=== PATIENT | female | born 1955 | race Asian ===

== ENCOUNTER 2017-11-02 16:05 | Inpatient (IN) | payer OTHER ==
[2017-11-02 18:54] LABS: ADD MAN DIFF? NO
[2017-11-02] MEDS: LABETALOL HCL 20MG INJ IV (18:56)
[2017-11-02] MEDS: ASPIRIN 325 MG TAB PO (18:56)
[2017-11-02 18:57] LABS: WHITE BLOOD COUNT 8.8 10^3/ul (4.8-10.8)
[2017-11-02 18:57] LABS: BASOPHIL # 0.1 10^3/ul (0.0-0.1); BASOPHILS % 0.6 % (0.0-2.0); EOSINOPHILS # 0.1 10^3/ul (0.0-0.5); EOSINOPHILS % 1.3 % (0.0-7.0); HEMATOCRIT 43.2 % (37.0-47.0); HEMOGLOBIN 14.5 g/dl (12.0-16.0); LYMPHOCYTES # 2.9 10^3/ul (0.8-2.9); LYMPHOCYTES % 32.6 % (15.0-51.0); MEAN CORPUSCULAR HGB CONC 33.6 g/dl (32.0-37.0); MEAN CORPUSCULAR VOLUME 92.5 fl (82.0-101.0); MEAN PLATELET VOLUME 11.9 fl (7.4-10.4); MONOCYTE # 0.6 10^3/ul (0.3-0.9); MONOCYTES % 7.1 % (0.0-11.0); NEUTROPHIL # 5.1 10^3/ul (1.6-7.5); NEUTROPHILS % 58.3 % (39.0-77.0); PLATELET COUNT 153 10^3/UL (140-415); RED BLOOD COUNT 4.67 10^6/ul (4.20-5.40); RED CELL DISTRIBUTION WIDTH 12.8 % (11.5-14.5)
[2017-11-02 19:16] LABS: ANION GAP 14 (8-16); BLOOD UREA NITROGEN 21 mg/dl (7-20); CARBON DIOXIDE 26 mmol/L (21-31); CHLORIDE 105 mmol/L (97-110); CREATININE 0.71 mg/dl (0.44-1.00); GLUCOSE 146 mg/dl (70-220); POTASSIUM 3.5 mmol/L (3.5-5.1); SODIUM 141 mmol/L (135-144)
[2017-11-02 19:28] LABS: B-TYPE NATRIURETIC PEPTIDE 3800 PG/ML (0-125); TROPONIN-I < 0.012 ng/ml (0.000-0.120)
[2017-11-02] MEDS: FUROSEMIDE 40 MG INJ IV (20:57)
[2017-11-02] MEDS ORDERED: DOCUSATE SODIUM 100 MG CAP PO (21:00)
[2017-11-02] MEDS ORDERED: BISACODYL (EC) 5 MG TAB PO (21:00)
[2017-11-02] MEDS ORDERED: NACL 0.9% 3 ML SYG IV (21:00)
[2017-11-02] MEDS ORDERED: ONDANSETRON 4 MG TAB PO (21:00)
[2017-11-02] MEDS ORDERED: morphine 2 MG INJ IV (21:00)
[2017-11-02] MEDS ORDERED: NITROGLYCERIN (SL) 0.4 MG TAB SL (21:00)
[2017-11-02] MEDS: ATORVASTATIN 10 MG TAB PO (23:11)
[2017-11-03 01:12] LABS: CREATINE KINASE 450 IU/L (23-200)
[2017-11-03 01:55] LABS: CK-MB 4.34 ng/ml (0.0-2.4)
[2017-11-03 03:47] LABS: TROPONIN-I < 0.012 ng/ml (0.000-0.120)
[2017-11-03] MEDS ORDERED: LOSARTAN 25 MG TAB (04:18)
[2017-11-03] MEDS: LOSARTAN 25 MG TAB PO ×2 (04:20→08:31)
[2017-11-03 06:16] LABS: ADD MAN DIFF? NO
[2017-11-03 06:20] LABS: WHITE BLOOD COUNT 8.9 10^3/ul (4.8-10.8)
[2017-11-03 06:20] LABS: BASOPHIL # 0.1 10^3/ul (0.0-0.1); BASOPHILS % 0.7 % (0.0-2.0); EOSINOPHILS # 0.2 10^3/ul (0.0-0.5); EOSINOPHILS % 1.7 % (0.0-7.0); HEMATOCRIT 43.4 % (37.0-47.0); HEMOGLOBIN 14.5 g/dl (12.0-16.0); LYMPHOCYTES # 2.5 10^3/ul (0.8-2.9); LYMPHOCYTES % 28.4 % (15.0-51.0); MEAN CORPUSCULAR HEMOGLOBIN 30.9 pg (29.0-33.0); MEAN CORPUSCULAR HGB CONC 33.4 g/dl (32.0-37.0); MEAN CORPUSCULAR VOLUME 92.3 fl (82.0-101.0); MEAN PLATELET VOLUME 12.4 fl (7.4-10.4); MONOCYTE # 0.9 10^3/ul (0.3-0.9); MONOCYTES % 9.6 % (0.0-11.0); NEUTROPHIL # 5.3 10^3/ul (1.6-7.5); NEUTROPHILS % 59.4 % (39.0-77.0); PLATELET COUNT 147 10^3/UL (140-415); RED CELL DISTRIBUTION WIDTH 12.9 % (11.5-14.5)
[2017-11-03 06:43] LABS: ALANINE AMINOTRANSFERASE 93 IU/L (13-69); ALBUMIN 3.9 g/dl (3.3-4.9); ALBUMIN/GLOBULIN RATIO 1.14; ALKALINE PHOSPHATASE 138 IU/L (42-121); ANION GAP 15 (8-16); ASPARTATE AMINO TRANSFERASE 82 IU/L (15-46); BILIRUBIN,INDIRECT 1.1 mg/dl (0-1.1); BILIRUBIN,TOTAL 1.1 mg/dl (0.2-1.3); BLOOD UREA NITROGEN 19 mg/dl (7-20); CALCIUM 8.6 mg/dl (8.4-10.2); CARBON DIOXIDE 31 mmol/L (21-31); CHLORIDE 99 mmol/L (97-110); CHOL/HDL RATIO 2.6 RATIO; CHOLESTEROL 156 mg/dl (100-200); CREATININE 0.71 mg/dl (0.44-1.00); GLUCOSE 81 mg/dl (70-220); HDL CHOLESTEROL 60 mg/dl (35-98); LDL CHOLESTEROL,CALCULATED 70 mg/dl; MAGNESIUM 1.5 mg/dl (1.7-2.5); SODIUM 142 mmol/L (135-144); TOTAL PROTEIN 7.3 g/dl (6.1-8.1); TRIGLYCERIDES 131 mg/dl (0-149)
[2017-11-03 06:47] LABS: CREATINE KINASE 347 IU/L (23-200)
[2017-11-03 06:54] LABS: CK INDEX 1.2; CK-MB 4.23 ng/ml (0.0-2.4); TROPONIN-I < 0.012 ng/ml (0.000-0.120)
[2017-11-03 07:01] LABS: HEMOGLOBIN A1C 5.8 % (0-5.9)
[2017-11-03] MEDS: ASCORBIC ACID 500 MG TAB PO (08:30)
[2017-11-03] MEDS: VITAMIN B COMPLEX/VIT C CAP PO (08:30)
[2017-11-03] MEDS: ASPIRIN (EC) 81 MG TAB PO (08:30)
[2017-11-03] MEDS: MULTIVITAMINS/MINERALS TAB PO (08:30)
[2017-11-03] MEDS: POTASSIUM CHLORIDE (SR) 20 MEQ TAB PO (08:59)
[2017-11-03] MEDS: POTASSIUM CHLORIDE 100 ML IVPB ×3 (10:25→17:58)
[2017-11-03] MEDS: ACETAMINOPHEN 325 MG TAB PO (11:39)
[2017-11-03] MEDS: ATORVASTATIN 10 MG TAB PO (20:22)
[2017-11-03] MEDS: FUROSEMIDE 20 MG INJ IV (22:46)
[2017-11-04] MEDS: ASPIRIN (EC) 81 MG TAB PO (08:26)
[2017-11-04] MEDS: VITAMIN B COMPLEX/VIT C CAP PO (08:26)
[2017-11-04] MEDS: ASCORBIC ACID 500 MG TAB PO (08:29)
[2017-11-04] MEDS: MULTIVITAMINS/MINERALS TAB PO (08:31)
[2017-11-04] MEDS: LOSARTAN 25 MG TAB PO (08:32)
[2017-11-04 09:20] LABS: MAGNESIUM 1.6 mg/dl (1.7-2.5)
[2017-11-04 09:35] LABS: ANION GAP 15 (8-16); BLOOD UREA NITROGEN 20 mg/dl (7-20); CALCIUM 9.1 mg/dl (8.4-10.2); CARBON DIOXIDE 26 mmol/L (21-31); CHLORIDE 104 mmol/L (97-110); CREATININE 0.73 mg/dl (0.44-1.00); GLUCOSE 107 mg/dl (70-220); POTASSIUM 3.8 mmol/L (3.5-5.1); SODIUM 141 mmol/L (135-144)
[2017-11-04] MEDS: FUROSEMIDE 20 MG INJ IV (12:20)
[2017-11-04] MEDS: MAGNESIUM SULFATE 2 GM/50 ML 50 ML IVPB (12:20)
[2017-11-04] MEDS ORDERED: morphine LIQ (10 MG/5 ML) CUP PO (16:30)
[2017-11-04] MEDS: ATORVASTATIN 10 MG TAB PO (21:55)
[2017-11-05 05:39] LABS: ADD MAN DIFF? NO
[2017-11-05 05:45] LABS: BASOPHIL # 0.1 10^3/ul (0.0-0.1); BASOPHILS % 0.8 % (0.0-2.0); EOSINOPHILS # 0.2 10^3/ul (0.0-0.5); EOSINOPHILS % 2.4 % (0.0-7.0); HEMATOCRIT 44.1 % (37.0-47.0); HEMOGLOBIN 14.5 g/dl (12.0-16.0); LYMPHOCYTES # 2.8 10^3/ul (0.8-2.9); MEAN CORPUSCULAR HEMOGLOBIN 30.3 pg (29.0-33.0); MEAN CORPUSCULAR HGB CONC 32.9 g/dl (32.0-37.0); MEAN CORPUSCULAR VOLUME 92.3 fl (82.0-101.0); MEAN PLATELET VOLUME 11.8 fl (7.4-10.4); MONOCYTE # 0.8 10^3/ul (0.3-0.9); NEUTROPHIL # 4.1 10^3/ul (1.6-7.5); NEUTROPHILS % 51.5 % (39.0-77.0); PLATELET COUNT 158 10^3/UL (140-415); RED BLOOD COUNT 4.78 10^6/ul (4.20-5.40)
[2017-11-05 06:15] LABS: ANION GAP 14 (8-16); BLOOD UREA NITROGEN 27 mg/dl (7-20); CALCIUM 9.1 mg/dl (8.4-10.2); CARBON DIOXIDE 28 mmol/L (21-31); CHLORIDE 103 mmol/L (97-110); CREATININE 0.76 mg/dl (0.44-1.00); GLUCOSE 102 mg/dl (70-220); POTASSIUM 3.5 mmol/L (3.5-5.1); SODIUM 141 mmol/L (135-144)
[2017-11-05] MEDS: ASPIRIN (EC) 81 MG TAB PO (08:17)
[2017-11-05] MEDS: LOSARTAN 25 MG TAB PO (08:17)
[2017-11-05] MEDS: REGADENOSON 0.4 MG/5 ML SYG (09:18)
[2017-11-05] MEDS: FUROSEMIDE 20 MG INJ IV (11:32)
[2017-11-05] MEDS: ASCORBIC ACID 500 MG TAB PO (11:35)
[2017-11-05] MEDS: MULTIVITAMINS/MINERALS TAB PO (11:35)
[2017-11-05] MEDS: VITAMIN B COMPLEX/VIT C CAP PO (11:35)
[2017-11-05] MEDS: ACETAMINOPHEN 325 MG TAB PO (19:09)
[2017-11-05] MEDS: DIPHENHYDRAMINE 25 MG CAP PO (21:42)
[2017-11-05] MEDS: ATORVASTATIN 10 MG TAB PO (21:42)
[2017-11-06] MEDS: ACETAMINOPHEN 325 MG TAB PO (04:54)
[2017-11-06 06:15] LABS: ADD MAN DIFF? NO
[2017-11-06 06:31] LABS: BASOPHILS % 0.4 % (0.0-2.0); EOSINOPHILS % 0.2 % (0.0-7.0); HEMATOCRIT 45.5 % (37.0-47.0); HEMOGLOBIN 15.3 g/dl (12.0-16.0); LYMPHOCYTES # 0.7 10^3/ul (0.8-2.9); LYMPHOCYTES % 6.7 % (15.0-51.0); MEAN CORPUSCULAR HEMOGLOBIN 30.8 pg (29.0-33.0); MEAN CORPUSCULAR HGB CONC 33.6 g/dl (32.0-37.0); MEAN CORPUSCULAR VOLUME 91.5 fl (82.0-101.0); MEAN PLATELET VOLUME 11.9 fl (7.4-10.4); MONOCYTE # 0.6 10^3/ul (0.3-0.9); MONOCYTES % 5.6 % (0.0-11.0); NEUTROPHIL # 9.4 10^3/ul (1.6-7.5); NEUTROPHILS % 86.9 % (39.0-77.0); PLATELET COUNT 162 10^3/UL (140-415); RED BLOOD COUNT 4.97 10^6/ul (4.20-5.40)
[2017-11-06 06:31] LABS: WHITE BLOOD COUNT 10.8 10^3/ul (4.8-10.8)
[2017-11-06 07:18] LABS: ANION GAP 14 (8-16); BLOOD UREA NITROGEN 19 mg/dl (7-20); CALCIUM 8.9 mg/dl (8.4-10.2); CARBON DIOXIDE 24 mmol/L (21-31); CHLORIDE 102 mmol/L (97-110); CREATININE 0.76 mg/dl (0.44-1.00); GLUCOSE 115 mg/dl (70-220); POTASSIUM 3.4 mmol/L (3.5-5.1); SODIUM 137 mmol/L (135-144)
[2017-11-06] MEDS: ASCORBIC ACID 500 MG TAB PO (09:19)
[2017-11-06] MEDS: MULTIVITAMINS/MINERALS TAB PO (09:20)
[2017-11-06] MEDS: ASPIRIN (EC) 81 MG TAB PO (09:20)
[2017-11-06] MEDS: LOSARTAN 25 MG TAB PO (09:21)
[2017-11-06] MEDS: VITAMIN B COMPLEX/VIT C CAP PO (09:21)
[2017-11-06] MEDS: FUROSEMIDE 20 MG INJ IV (09:22)
== END 2017-11-06 13:43 | disposition home or self-care (01) | DRG 293 ==
LOC: E/R 16:05 → 6WM 20:09
DX: I11.0 Hypertensive heart disease with heart failure (principal); I50.31 Acute diastolic (congestive) heart failure; Z85.3 Personal history of malignant neoplasm of breast; Z90.12 Acquired absence of left breast and nipple; E78.5 Hyperlipidemia, unspecified; I89.0 Lymphedema, not elsewhere classified; E87.6 Hypokalemia
CPT/HCPCS: 36415; 71045; 78452; 80048; 80053; 80061; 82550; 82553; 83036; 83735; 83880; 84443; 84484; 85025; 93005; 93017; 93306; 96374; 99291-25